=== PATIENT | female | born 1960 | race Caucasian/White ===

== ENCOUNTER 2019-01-30 05:45 | Day surgery (SDC) | payer BC ==
[~2019-01-30] VITALS: Ht 162.6 cm; Wt 54.4 kg
--- NOTE | 2019-01-30 07:51 | NUR ---
PT ALERT, ORIENTED AND SEEMS AT EASE WATCHING TV. PTS' WILL BE BACK TO TAKE HER HOME FOLLOWING DC. PT SEEMED TO DEAL APPROPRIATELY WITH PREP, AND PT THANKED ME FOR COMING IN. EXTENDED A BLESSING, WILL FOLLOW NEEDED
--- NOTE | 2019-01-30 08:07 | NUR ---
01/30/19 0807 Elvira De Leon 0802- PT ARRIVES TO PACU EASILY AROUSABLE TO VOICE. PT REPORTS NO PAIN OR NAUSEA. RESP EVEN AND UNLABORED. OXYGEN SAT HIGH 90'S TO 100% ON 2L VIA NC. 0806- OXYGEN TITRATED OFF.
--- NOTE | 2019-01-30 08:55 | OR ---
[facility] [address] [place], [place] [address] Signed DATE OF OPERATION: 01/30/2019 SURGEON: Demetrice Cristina MD PREOPERATIVE DIAGNOSIS: Left scapular subcutaneous mass (2 cm). POSTOPERATIVE DIAGNOSIS: Left scapular subcutaneous mass (2 cm). PROCEDURE: Excision of left scapular benign subcutaneous mass. ESTIMATED BLOOD LOSS: None. INDICATIONS: Shara is a 58-year-old female, who was asked to see me for subcutaneous mass over the left somewhat lateral scapular area. She has noticed it for the last couple years. It has been increasing in size. One can easily see it through her shirt. It is just on the lateral edge of the bra line. It has been causing pain. 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 She said at this point, it is quite troublesome and she needs to have it removed. To her knowledge, it has never been infected or drained. In the office, I explained to Shara this was a bit much to remove under just local anesthetic without cautery and so forth. We decided to do it over at the hospital with IV conscious sedation in addition to our local anesthetic. We would also have better lighting and cautery, and we would be much more secure in removing that completely. She understands there is risk to surgery including, but not limited to bleeding, infection, scarring, change in contour of the skin as well as possible need for additional surgery based on pathology results. She had expressed understanding and wished to proceed. PROCEDURE NOTE: I met with Shara in our preop area. We reviewed the above findings. We both agreed and marked the lesion on her left scapula. After this, Shara was taken in the operating room and placed in the prone position with appropriate padding and monitoring. She was given preoperative antibiotics along with subcutaneous heparin. SCDs were utilized. She was prepped and draped in the usual sterile fashion. She was given IV sedation with 5 mg of Versed and 100 mcg of fentanyl with the help of our nurse. 23 mL of local anesthetic was injected in and around the lesion. A stiff standard transverse incision was made Electronically Signed By: DEMETRICE CRISTINA MD 01/30/19 0855 PATIENT NAME: CIARASHARA Claire OPERATIVE REPORT DATE OF : 58 REPORT #: [id number] PHYSICIAN: DEMETRICE CRISTINA MD PCP: AMEE URBINA MD REPORT IS CONFIDENTIAL AND NOT TO BE RELEASED WITHOUT AUTHORIZATION [address] [address] Signed over the lesion and carried down around the lesion bluntly and with the cautery. It appears to be a benign cystic lesion. Therefore, no margins. After this, the wound was copiously irrigated and suctioned out. The lesion then passed off the field to the pathology department. The dermis was reapproximated with interrupted 3-0 subcuticular Monocryl sutures. The skin edges were reapproximated with a running 6-0 fast absorbing plain gut suture. Dry gauze and tape were then applied. Shara was then rotated into the supine position on her hospital bed and taken into recovery room in stable condition. Demetrice Cristina MD ALB/MODL /[id number] cc: MD Demetrice Bassett MD Copies: AMEE URBINA DMD, ANDREW L MD ~ Electronically Signed By: DEMETRICE CRISTINA MD 01/30/19 0855 PATIENT NAME: SHARA URBINA OPERATIVE REPORT DATE OF : 58 REPORT #: [id number] PHYSICIAN: DEMETRICE CRISTINA MD PCP: AMEE URBINA MD REPORT IS CONFIDENTIAL AND NOT TO BE RELEASED WITHOUT AUTHORIZATION
--- NOTE | 2019-02-02 12:48 | PATH ---
[facility] [address] [place], [place] [address] Signed SPECIMEN(S): A LEFT SCAPULA SPECIMEN SOURCE: A. LEFT SCAPULA CLINICAL HISTORY: SQ mass. FINAL PATHOLOGIC DIAGNOSIS: Subcutaneous mass, left scapula, excision: - Pilar (tricholemmal) cyst, see Comment. COMMENT: A focal area of foreign body type giant cell reaction is present, suggestive of prior rupture. NAL:cml:C2NR MICROSCOPIC EXAMINATION: Histologic sections of all submitted blocks are examined by light microscopy. These findings, together with the gross examination, support the pathologic diagnosis. GROSS DESCRIPTION: The specimen, labeled "LJ, left scapula subcutaneous mass," is received in formalin and consists of a 2.7 x 2.5 x 1.8 cm alvarenga-green cystic nodule. The cyst is slightly disrupted and filled with a green-brown pasty and friable material. Diesel Engine [employer]er sections are submitted in cassette (A1). AM (under the direct supervision of a pathologist) The Gross Description was prepared using a voice recognition system. The report was reviewed for accuracy; however, sound-alike word errors, addition and/or deletions may occur. If there is any question about this report, please contact Client Services. PERFORMING LABORATORY: The technical component was performed by [facility], [address] [place] [id number] (Construction Scheduler: Josefa Nicolas MD; CLIA# [id number]). [facility], [address] [address] (Construction Scheduler: Donny Valdes MD; CLIA# [id number]). PATIENT NAME: CASEY URBINA PATHOLOGY DATE OF : 58 REPORT #: [id number] PHYSICIAN: [facility] PCP: AMEE URBINA MD REPORT IS CONFIDENTIAL AND NOT TO BE RELEASED WITHOUT AUTHORIZATION [address] [address] Signed Diagnostician: Analisa Montero MD Pathologist Electronically Signed 02/02/2019 Copies: ~ PATIENT NAME: CASEY URBINA PATHOLOGY DATE OF : 58 REPORT #: [id number] PHYSICIAN: [facility] PCP: AMEE URBINA MD REPORT IS CONFIDENTIAL AND NOT TO BE RELEASED WITHOUT AUTHORIZATION
== END 2019-01-30 08:40 | disposition home or self-care (01) ==
LOC: DS 05:45
PROVIDERS: Colon & Rectal Surgery
PROC: 0HB6XZZ Excision of Back Skin, External Approach (ICD-10-PCS; principal; 2019-01-30 06:45)
DX: L72.11 Pilar cyst (principal); F17.210 Nicotine dependence, cigarettes, uncomplicated
CPT/HCPCS: 99153; G0500; J0690; J1644; J2250; J3010; J7121

== ENCOUNTER 2019-02-10 09:06 | Day surgery (SDC) | payer BC ==
[~2019-02-10] VITALS: Ht 162.6 cm; Wt 54.4 kg
--- NOTE | 2019-02-10 11:26 | NUR ---
02/10/19 1126 Kristal Montgomery 1117- PT TO PACU IN LL POSITION. EYES OPEN. DENIES PAIN OR NAUSEA. BREATHING EASY AND UNLABORED S-02>95% ON 3 L VIA NC. 1122- PT EYES CLOSED, RESPONDS EASILY TO VOICE. DENIES PAIN AND NAUSEA. BREATHING EASY AND UNLABORED. SP02 >95% ON 2 L VIA NC.
--- NOTE | 2019-02-10 18:23 | OR ---
[facility] [address] [place], [place] [address] Signed DATE OF OPERATION: 02/10/2019 SURGEON: Demetrice Kruger MD PREOPERATIVE DIAGNOSIS: Screening. POSTOPERATIVE DIAGNOSES: 1. Minimal sigmoid diverticulosis. 2. Two tiny internal anal skin tags. 3. 3 mm polyps x2 at 6 cm. 4. 4 mm polyp at 42 cm. 5. 4 mm polyp at 15 cm. PROCEDURE: Colonoscopy with hot biopsy. ESTIMATED BLOOD LOSS: None. INDICATIONS: Shara is a 58-year-old female, asked to see me for a screening colonoscopy. She has no lower GI complaints. There is no family history of colon cancer or polyps. Her has already been through colonoscopy with us and so she is familiar with the process. She also is familiar with our bowel prep and we went through it line by line. I did give her a booklet on colonoscopy and we did review that together. She understands the nature of the test along with the risks including, but not limited to gas, bloating, crampy abdominal pain, bleeding, perforation requiring surgery, and missed diagnosis. She is also aware of the need for IV conscious sedation. She has expressed understanding and wishes to proceed. PROCEDURE NOTE: Shara was taken into our endoscopy suite and placed in the left lateral decubitus position. She was given IV sedation with 8 mg of Versed and 150 mcg of fentanyl. A digital rectal exam was performed and this was unremarkable. The adult colonoscope was then introduced and advanced all around into the cecum under direct visualization of the camera. It took a few minutes and some extra sedation in order to get through the sigmoid colon. Her prep was good. The scope was slowly withdrawn. We could easily see the appendiceal orifice and the ileocecal valve. We had taken pictures for photodocumentation. We could see that she has very minimal sigmoid diverticulosis. Electronically Signed By: DEMETRICE KRUGER MD 02/10/19 1823 PATIENT NAME: SHARA URBINA OPERATIVE REPORT DATE OF : 58 REPORT #: [id number] PHYSICIAN: DEMETRICE KRUGER MD PCP: AMEE URBINA MD REPORT IS CONFIDENTIAL AND NOT TO BE RELEASED WITHOUT AUTHORIZATION [facility] [address] [place], [place] [address] Signed They were small in size, few in number, and scattered about. The above-mentioned polyps were easily removed with the help of hot biopsy forceps. Once in the rectum, the scope was then retroflexed and she had two tiny internal anal skin tags. They were quite minimal. After this, the gas was suctioned out and the colonoscope removed. Shara tolerated procedure quite well. RECOMMENDATIONS: I will see Shara back in my office in 7 to 14 days to review her results. Demetrice Kruger MD ALB/MODL /[id number] cc: MD Amee Sequeira MD Copies: DEMETRICE KRUGER MD, ROBERT D DMD ~ Electronically Signed By: DEMETRICE KRUGER MD 02/10/19 1823 PATIENT NAME: SHARA URBINA OPERATIVE REPORT DATE OF : 58 REPORT #: [id number] PHYSICIAN: DEMETRICE KRUGER MD PCP: AMEE URBINA MD REPORT IS CONFIDENTIAL AND NOT TO BE RELEASED WITHOUT AUTHORIZATION
--- NOTE | 2019-02-11 17:07 | PATH ---
[facility] [address] [place], [place] [address] Signed SPECIMEN(S): A COLON POLYP AT 6 CM SPECIMEN(S): B COLON POLYP AT 42 CM SPECIMEN(S): C COLON POLYP AT 15 CM SPECIMEN SOURCE: A. COLON POLYP AT 6 CM B. COLON POLYP AT 42 CM C. COLON POLYP AT 15 CM CLINICAL HISTORY: Screening. Colon and rectal polyps, diverticulosis, anal skin tags. MICROSCOPIC DESCRIPTION: Histologic sections of all submitted blocks are examined by light microscopy. These findings, together with the gross examination, support the pathologic diagnosis. FINAL PATHOLOGIC DIAGNOSIS: A. Mucosa, colon at 6 cm, biopsy: - Hyperplastic polyp. B. Mucosa, colon at 42 cm, biopsy: - Surface features suggestive but not entirely diagnostic of hyperplasia polyp (see Comment). C. Mucosa, colon at 15 cm, biopsy: - Surface features suggestive, but not entirely diagnostic of hyperplastic polyp (see Comment). COMMENT: B and C-- Multiple levels over three slides are examined. No adenomatous change or full thickness hyperplastic change is seen. LJA:slh:C2NR GROSS DESCRIPTION: Three specimens are received in three containers, labeled "LJ." A. The specimen, labeled "LJ, colon polyp at 6 cm," is received in formalin and consists of two alvarenga tissue fragments, both measuring 0.2 cm. Specimen is entirely submitted in cassette (A1). B. The specimen, labeled "LJ, colon polyp at 42 cm," is received in formalin and consists of a single 0.1 cm alvarenga tissue fragment. Specimen is entirely submitted in cassette (B1). C. The specimen, labeled "LJ, colon polyp at 15 cm," is received in formalin and consists of a single 0.3 cm alvarenga tissue fragment. Specimen is entirely PATIENT NAME: CASEY URBINA PATHOLOGY DATE OF : 58 REPORT #: [id number] PHYSICIAN: [facility] PATH[facility] PCP: AMEE URBINA MD REPORT IS CONFIDENTIAL AND NOT TO BE RELEASED WITHOUT AUTHORIZATION [facility] [address] [place] [address] Signed submitted in cassette (C1). AM (under the direct supervision of a pathologist) The Gross Description was prepared using a voice recognition system. The report was reviewed for accuracy; however, sound-alike word errors, addition and/or deletions may occur. If there is any question about this report, please contact Client Services. PERFORMING LABORATORY: The technical component was performed by [facility] [address] (County Program Technician: Josefa Nicolas MD; CLIA# [id number]). Professional interpretation was performed by [facility], [address] [address] (County Program Technician: Donny Valdes MD; CLIA# [id number]). Diagnostician: Donny Valdes MD Pathologist Electronically Signed 02/11/2019 Copies: ~ PATIENT NAME: CASEY URBINA Alethea PATHOLOGY DATE OF : 58 REPORT #: [id number] PHYSICIAN: JUAN HUTTON PCP: AMEE URBINA MD REPORT IS CONFIDENTIAL AND NOT TO BE RELEASED WITHOUT AUTHORIZATION
== END 2019-02-10 12:15 | disposition home or self-care (01) ==
LOC: OPS 09:06 → DS 10:30 → OPS 10:30
PROVIDERS: Colon & Rectal Surgery
PROC: 0DBE8ZZ Excision of Large Intestine, Via Natural or Artificial Opening Endoscopic (ICD-10-PCS; principal; 2019-02-10 10:30)
DX: Z12.11 Encounter for screening for malignant neoplasm of colon (principal); K63.5 Polyp of colon; K57.30 Diverticulosis of large intestine without perforation or abscess without bleeding; K64.4 Residual hemorrhoidal skin tags; F17.210 Nicotine dependence, cigarettes, uncomplicated
CPT/HCPCS: 99153; G0500; J2250; J3010